=== PATIENT | male | born 1965 | race Caucasian/White ===

== ENCOUNTER 2021-03-21 01:10 | Observation (INO) | payer MEDICARE, MEDICAID, SELFPAY ==
[2021-03-21] VITALS (9 sets, daily range): BP systolic 181–200; BP diastolic 104–120; PULSE 65–104; RESP 17–20; TEMP 36.7–36.9; O2SAT 95–97; BMI 22.4
--- NOTE | 2021-03-21 01:16 | W.ED.PSYCH ---
HPI - Psych General: Chief Complaint: Psychiatric Symptoms Stated Complaint: SI Time Seen by Provider: 03/21/21 01:14 Source: patient and EMS Mode of arrival: EMS Limitations: no limitations History of Present Illness: HPI Narrative: 55-year-old male presents with EMS for suicidal ideation. Patient has extensive psychiatric history states has been under a lot of stress lately and has had problems with wall enforcement and states that he just wants to kill himself. He is a plan of a car wreck to kill himself. Patient's been admitted in the past. He denies any worsening proving factors. Associated symptoms: Reports depression and suicidal ideation Review of Systems Const: Denies: fever(s), chills, body aches or change in appetite Eyes: Denies: blurry vision or eye discomfort ENMT: Denies: throat pain or dental pain Card: Denies: chest pain Resp: Denies: dyspnea GI: Denies: abdominal pain, nausea, vomiting or diarrhea : Denies: dysuria Musc: Denies: neck pain or back pain Skin/Breast: Denies: rash Neuro: Denies: headache(s) Psych: Reports: depression and suicidal ideation Zac/Lymph: Denies: easy bruising All/Imm: Denies: urticaria Physical Exam Const: COMMON NORMALS: no acute distress, patient oriented x3 and healthy appearing HENMT: COMMON NORMALS: normocephalic and atraumatic HEAD & SCALP: normocephalic and atraumatic Eye: COMMON NORMALS: Equal, round and reactive pupils present and EOMs intact bilaterally PUPIL: Yes Equal, round and reactive pupils present Neck/C-Spine: COMMON NORMALS: full ROM and supple Chest: COMMONS NORMALS: normal inspection of the chest and normal palpation of entire chest wall Resp: COMMON NORMALS: normal respiratory effort, No retractions, No use of accessory muscles and clear to auscultation bilaterally AUSCULTATION: clear to auscultation bilaterally Cardio: COMMON NORMALS: regular rate, regular rhythm and No murmurs present (Cardio) RATE: regular rate RHYTHM: regular rhythm GI: COMMON NORMALS: Normal to inspection, nondistended, normoactive bowel sounds present, Soft to palpation, non-tender and no masses PALPATION: Yes Soft to palpation Extremity: COMMON NORMALS: normal to inspection and full ROM Neuro: COMMON NORMALS: patient oriented x3, moves all extremities and no focal motor deficits Psych: COMMON NORMALS: mental status grossly normal and cooperative THOUGHT CONTENT: Yes Suicidality present Skin: COMMON NORMALS: no rashes or lesions noted and no wounds GENERAL SKIN EXAM: no rashes or lesions noted Course Vital Signs: Vital signs: Vital Signs Temperature 98.4 F 03/21/21 01:15 Pulse Rate 104 H 03/21/21 01:15 Respiratory Rate 18 03/21/21 01:15 Blood Pressure 200/120 03/21/21 01:15 Pulse Oximetry 96 03/21/21 01:15 MDM - Psych MDM Narrative: Medical decision making narrative: Patient presents here with suicidal ideation with a plan to kill himself by MVC. Patient has been using methamphetamine as well. Patient is medically cleared here. He does have some slight hypertension likely due to his methamphetamine use. Patient's blood pressure is improved after metoprolol. Patient's other blood work here is all normal and he is stable for admission to the psych unit. Lab Data: Labs: Lab Results 03/21/21 03/21/21 03/21/21 Range/Units 00:32 01:00 01:00 WBC 8.8 (4.0-10.0) 10^3/ uL RBC 4.25 (4.1-5.3) 10^6/u L Hgb 13.5 (11.7-16.6) g/dL Hct 41.2 L (42.0-52.0) % MCV 96.9 H (80-94) fL MCH 31.8 (28.0-34.0) pg MCHC 32.8 (30.0-36.0) g/dL RDW 13.1 (12.1-15.1) % Plt Count 291 (130-400) 10^3/c mm MPV 8.7 (7.4-10.4) fL Neut % (Auto) 57.9 % Lymph % (Auto) 26.5 % [place] % (Auto) 10.8 % Eos % (Auto) 3.5 % Baso % (Auto) 0.6 % Neut # (Auto) 5.07 (1.8-7.7) 10^3/u L Lymph # (Auto) 2.3 (0.8-4.8) 10^3/u L [place] # (Auto) 1.0 H (0.2-0.9) 10^3/u L Eos # (Auto) 0.3 (0.0-0.8) 10^3/u L Baso # (Auto) 0.1 (0.0-0.1) 10^3/u L Nucleated RBC % (a uto) 0 % Nucleated RBCs # 0.0 /100WBC Sodium 138 (136-145) mmol/L Potassium 4.5 (3.5-5.1) mmol/L Chloride 101 (98-107) mmol/L Carbon Dioxide 27 (22-29) mmol/L Anion Gap 14.5 (5-19) BUN 13 (6-20) mg/dL Creatinine 0.8 (0.7-1.2) mg/dL GFR Calculation 99.6 (90-130) mL/min Glucose 101 (65-115) mg/dL Calculated Osmolal ity 286 (285-295) mOsm/k g Calcium 10.3 (8.5-10.5) mg/dL Total Bilirubin 0.2 (0.15-1.2) mg/dL AST 22 (0-40) U/L ALT 14 (0-41) U/L Alkaline Phosphata se 111 (40-130) IU/L Total Protein 7.0 (6.6-8.7) g/dL Albumin 4.4 (3.5-5.2) g/dL Globulin 2.6 (1.3-4.6) g/dL Salicylates < 0.3 L (3-10) mg/dL Urine Opiates Scre en Negative (Negative) ng/mL Acetaminophen < 5.0 L (10-30) ug/mL Ur Barbiturates Sc reen Negative (Negative) ng/mL Ur Phencyclidine S crn Negative (Negative) ng/mL Ur Amphetamines Sc reen Positive H (Negative) ng/mL U Benzodiazepines Scrn Negative (Negative) ng/mL Urine Cocaine Scre en Negative (Negative) ng/mL U Marijuana (THC) Screen Negative (Negative) ng/mL Ethyl Alcohol < 10 (0-10) mg/dL Discharge Plan Discharge Patient Disposition: Admitted As Inpatient Admit Provider: Luan Noble Clinical Impression: Suicidal ideation Condition: Stable Coding Level of Care Code ED Blower Feeder Dyed Raw Stock for Chg Fwd Exam Comprehensive
[2021-03-21 01:21] LABS: Basophils # 0.1 10^3/uL (0.0-0.1); Basophils % 0.6 %; Eosinophils # 0.3 10^3/uL (0.0-0.8); Eosinophils % 3.5 %; Hematocrit 41.2 % (42.0-52.0); Hemoglobin 13.5 g/dL (11.7-16.6); Lymphocytes # 2.3 10^3/uL (0.8-4.8); Lymphocytes % 26.5 %; Mean Corpuscular HGB Conc 32.8 g/dL (30.0-36.0); Mean Corpuscular Hemoglobin 31.8 pg (28.0-34.0); Mean Corpuscular Volume 96.9 fL (80-94); Mean Platelet Volume 8.7 fL (7.4-10.4); Monocytes % 10.8 %; Neutrophils # 5.07 10^3/uL (1.8-7.7); Neutrophils % 57.9 %; Nucleated Red Blood Cells % 0 %; Platelet Count 291 10^3/cmm (130-400); Red Blood Count 4.25 10^6/uL (4.1-5.3); Red Cell Distribution Width 13.1 % (12.1-15.1); White Blood Count 8.8 10^3/uL (4.0-10.0)
[2021-03-21] MEDS: LORazepam 1 mg Tablet PO (01:22)
[2021-03-21 01:41] LABS: Alanine Aminotransferase 14 U/L (0-41); Albumin Level 4.4 g/dL (3.5-5.2); Alkaline Phosphatase 111 IU/L (40-130); Anion Gap 14.5 (5-19); Aspartate Amino Transferase 22 U/L (0-40); Blood Urea Nitrogen 13 mg/dL (6-20); Calcium 10.3 mg/dL (8.5-10.5); Carbon Dioxide 27 mmol/L (22-29); Chloride 101 mmol/L (98-107); Globulin 2.6 g/dL (1.3-4.6); Glomerular Filtration Rate 99.6 mL/min (90-130); Glucose 101 mg/dL (65-115); Osmolality Calculated 286 mOsm/kg (285-295); Potassium 4.5 mmol/L (3.5-5.1); Sodium 138 mmol/L (136-145); Total Bilirubin 0.2 mg/dL (0.15-1.2)
[2021-03-21 01:45] LABS: Acetaminophen < 5.0 ug/mL (10-30); Alcohol Level < 10 mg/dL (0-10); Salicylate < 0.3 mg/dL (3-10)
--- NOTE | 2021-03-21 01:56 | ECG_ITS ---
[facility] Test Date: 2021-03-21 Pat Name: Abimael Chow Department: Room: Gender: Male Grader Tender: : 1965 Requested By: Cinthia Govea Order Number: [id number] Amaral MD: Trinidad Asencio M.D. Measurements Intervals [place] Rate: 97 P: 70 UT: 160 QRS: 35 QRSD: 87 T: 67 QT: 318 QTc: 405 Interpretive Statements SINUS RHYTHM POSSIBLE LEFT ATRIAL ENLARGEMENT [-0.1mV P WAVE IN V1/V2] SEPTAL MYOCARDIAL INFARCTION , OF INDETERMINATE AGE [40+ ms Q WAVE IN V1/V2] Compared to ECG 04/27/2019 03:39:55 Myocardial infarct finding now present Sinus bradycardia no longer present Electronically Signed On 03-22-2021 6:56:11 CDT by Trinidad Asencio M.D. [id number]
[2021-03-21 01:58] LABS: Amphetamines Screen Urine Positive (Negative); Barbiturates Screen Urine Negative (Negative); Benzodiazepines Screen Urine Negative (Negative); Cocaine Screen Urine Negative (Negative); Opiate Screen Urine Negative (Negative); PCP Screen Urine Negative (Negative); THC Screen Urine Negative (Negative)
[2021-03-21] MEDS: divalproex ER 500 mg Tablet (24H) PO (02:10)
[2021-03-21] MEDS: metoprolol tartrate 50 mg Tablet PO (02:23)
--- NOTE | 2021-03-21 03:48 | PC.NURSE ---
correct vital signs upon admission @238/neetua/ 03/21/2021
[2021-03-21] MEDS: nicotine 2 mg Gum BUCCAL (05:28)
[2021-03-21 07:06] LABS: Valproic Acid Level 69.4 ug/mL (50-100)
[2021-03-21] MEDS: citalopram 20 mg Tablet 40 MG PO (08:04)
[2021-03-21] MEDS: tizanidine 4 mg Tablet PO (08:05)
[2021-03-21] MEDS: timolol 0.5% Op Soln 5 mL Btl 1 DROP EYE-BOTH (08:05)
[2021-03-21] MEDS: BuSPIRONE 10 mg Tablet 15 MG PO (08:05)
[2021-03-21] MEDS: gabapentin 400 mg Capsule PO (08:05)
--- NOTE | 2021-03-21 09:09 | P.SS_ITS ---
Short Stay Summary Providers Date of Admit/Discharge: 03/21/21 Attending Provider: Luan Noble DO Chief Complaint: SI HPI History of Present Illness Abimael Chow is a 55 year old male with unclear past psychiatric history but longstanding history of substance abuse to include methamphetamine abuse presenting to the hospital after being pulled over by law enforcement and subs equently pending potential return to [place] [facility] with patient stating that he became more anxious about the idea of having to go back to [place] [facility] and was having passive suicidal thoughts with no active intent or plan. Of note, patient was positive for methamphetamine on urine drug screen at the time of his initial evaluation and was not endorsing any suicidal ideation and denying any sustained mood symptoms, no depressive symptoms. Review of Systems General: Reports: 10 or more systems reviewed and unremarkable except in HPI and below Home Meds/Allergies Home Medications and Allergies Home Medications Medication Instructions Recorded Confirmed Type albuterol sulfate 2 puff INHALATION QID 03/21/21 03/21/21 History buspirone 15 mg PO QID 03/21/21 03/21/21 History citalopram 40 mg PO DAILY 03/21/21 03/21/21 History divalproex 1,000 mg PO QPM 03/21/21 03/21/21 History divalproex 500 mg PO QAM 03/21/21 03/21/21 History fluticasone propion-salmeterol 1 inh INHALATION BID 03/21/21 03/21/21 History [Wixela Inhub] gabapentin 600 mg PO DAILY 03/21/21 03/21/21 History gabapentin 900 mg PO QAM 03/21/21 03/21/21 History lamotrigine 50 mg PO BID 03/21/21 03/21/21 History latanoprost 1 drp OPHTHALMIC (EYE) BEDTIME 03/21/21 03/21/21 History quetiapine 100 mg PO QAM 03/21/21 03/21/21 History quetiapine 150 mg PO DAILY@17 03/21/21 03/21/21 History quetiapine 300 mg PO BEDTIME 03/21/21 03/21/21 History timolol maleate 1 drp OPHTHALMIC (EYE) Q12H 03/21/21 03/21/21 History tizanidine 8 mg PO Q8H 03/21/21 03/21/21 History Allergies Allergy/AdvReac Type Severity Reaction Status Date / Time No Known Allergies Allergy Verified 03/21/21 01:12 Vitals/I&O/Wt Last Vital Signs Temp 98.5 F 03/21/21 06:00 Pulse 65 03/21/21 06:00 Resp 17 03/21/21 06:00 BP 181/104 03/21/21 06:00 Pulse Ox 96 03/21/21 06:00 Weight last 48 hrs Weight 74.843 kg Physical Exam Narrative: EXAM NARRATIVE: MSE: Appears older than stated age, appropriately groomed and dressed wearing hospital scrubs, calm, cooperative, interactive, good eye contact Psychomotor activity is neither increased nor decreased, no agitation Speech is normal rate and volume, spontaneous, fair articulation, not pressured I feel okay, full range of affect, not labile Alert and oriented to person, place, time, situation Memory and concentration appear to be intact per interview Intellectual functioning appears to be average based on vocabulary, interview Thought process, linear, no flight of ideas, no looseness of associations Thought content, no delusions, no hallucinations, no suicidal or homicidal ideation Insight and judgment appear to be fair to intact Hospital Course Hospital Course Patient states that he was never suicidal and never had any intentions of wanting to end his life reporting friends and family as a reason for not wanting to end his life. He denies any recent mood symptoms but reports having elevated anxiety secondary to the potential of having to return to [place] [facility] for violation of his parole secondary to methamphetamine possession, use. Patient was positive for methamphetamine at the time of initial evaluation in the emergency department. He currently denies any depressive symptoms, denies any suicidal ideation. He denies any perceptual disturbances, denies any auditory or visual hallucinations, denies any delusions. Patient reports being compliant with his medication that is prescribed by his primary care. Patient was found to have a Depakote level of 69 at the time of initial evaluation. Patient participated in unit milieu with no reports of any behavioral disturbances. Patient was not suicidal and denied any psychiatric symptoms at the time of discharge and did no t appear to pose an imminent threat of harm to self or others. Low to moderate risk of harm to self given no current suicidal ideation and denies having any history of suicide attempts or self-harm behavior and currently denies any psychiatric symptoms although his risk may be elevated if he continues to abuse methamphetamine leading to unexpected, impulsive behavior. Risk mitigation included psychiatric hospitalization for observation for any persisting suicidal ideation or behaviors, restarting home medications for medication stabilization, recommendation to abstain from use of substances and alcohol as well as need for compliance with his medication, medication management follow-up and substance counseling/treatment. Patient was able to communicate his understanding of the need to abstain from the use of substances and alcohol as well as the need for compliance with his medication, medication management and substance counseling/treatment in order to further mitigate his risk of harm to self and others. Diagnoses at Discharge Discharge Diagnosis (1) Suicidal ideation: Status: Acute (2) Adjustment disorder with anxiety: Status: Acute Discharge Plan Discharge Patient Disposition: Home Condition: Stable Prescriptions: Continued latanoprost 0.005 % Drops 1 drp ophthalmic (eye) BEDTIME RF: 0 citalopram 40 mg Tablet 40 mg PO DAILY RF: 0 lamotrigine 25 mg Tablet 50 mg PO BID RF: 0 divalproex 500 mg Tablet Extended Release 24 Hr 500 mg PO QAM RF: 0 divalproex 500 mg Tablet Extended Release 24 Hr 1,000 mg PO QPM RF: 0 gabapentin 300 mg Capsule 600 mg PO DAILY RF: 0 gabapentin 300 mg Capsule 900 mg PO QAM RF: 0 albuterol sulfate 90 mcg/actuation Hfa Aerosol Inhaler 2 puff INHALATION QID RF: 0 buspirone 15 mg Tablet 15 mg PO QID RF: 0 Wixela Inhub 250-50 mcg/dose Blister With Device 1 inh INHALATION BID RF: 0 quetiapine 300 mg Tablet 300 mg PO BEDTIME RF: 0 quetiapine 100 mg Tablet 100 mg PO QAM RF: 0 quetiapine 100 mg Tablet 150 mg PO DAILY@17 RF: 0 timolol maleate 0.5 % Drops 1 drp OPHTHALMIC (EYE) Q12H RF: 0 tizanidine 4 mg Capsule 8 mg PO Q8H RF: 0 Discharge Orders: Discharge Order (Routine); Ordered 03/21/21 Ordered By: Luan Noble Referrals: [facility] [Outside] [facility] [Outside] Discharge Diet: Regular Discharge Activity: Resume usual activity Patient Instructions: Opioid Safety Attestations Medical Necessity Statement*: Outpatient medication management, substance counseling/treatment is the least restrictive and appropriate level of care at this time. Time Spent in Patient Care*: greater than 30 min Status at Discharge: Cognitive status at discharge: cognitively intact , Behavioral status at discharge: cooperative , Functional status at discharge: independent ambulation Overall status at discharge: patient is back to baseline Quality Metrics Clinical Quality Measures: During this hospital stay, did patient experience: None Coding Level of Care Code Acute Agronomy Research Manager for Gailg Fwd Diagnoses Suicidal ideation R45.851 Adjustment disorder with anxiety F43.22
[2021-03-21] MEDS: albuterol 8 gm MDI 2 PUFF INHALATION (09:37)
== END 2021-03-21 11:29 | disposition home or self-care (01) ==
LOC: ER 01:50 → NP 08:55
PROVIDERS: Admitting Provider Psychiatry & Neurology Psychiatry; Emergency Provider Emergency Medicine; Visit Provider Psychiatry & Neurology Psychiatry
DX: R45.851 Suicidal ideations (principal); F43.22 Adjustment disorder with anxiety
CPT/HCPCS: 36415; 80053; 80164; 80306; 80307; 85025; 93005; 94640; 99285; G0378; J3535

== ENCOUNTER 2021-04-26 02:37 | Inpatient (IN) | payer MEDICARE, MEDICAID, SELFPAY ==
[2021-04-26] VITALS (52 sets, daily range): BP systolic 98–148; BP diastolic 60–91; PULSE 62–110; RESP 12–24; TEMP 36.1–37.1; O2SAT 94–100; BMI 25.7
--- NOTE | 2021-04-26 02:39 | XRR_ITS ---
PROCEDURE INFORMATION: Exam: XR Chest Exam date and time: 04/26/2021 2:39 AM Age: 55 years old Clinical indication: Device placement; Ett placement (vent status); Patient HX: Drug overdose. Check S/P intubation. Unable to obtain history. ; Additional info: Od TECHNIQUE: Imaging protocol: XR of the chest. Views: 1 view. COMPARISON: TN Chest 1 view [id number] 04/29/2019 10:37 AM FINDINGS: Tip of ET tube projects in appropriate position above the calista. Lung volumes are mildly low. Otherwise no focal pulmonary consolidation is demonstrated on this single frontal image. No significant obscuration of the lateral costophrenic angles is demonstrated. No significant vascular congestion is demonstrated. Visualized cardiac silhouette size appears enlarged, accentuated by low lung volumes. Thoracic aorta is unfolded. Metallic hardware projects over visualized cervical spine. XR/XR chest 1V portable [id number] IMPRESSION: Tip of ET tube projects in appropriate position above the calista. Other findings as discussed above.
--- NOTE | 2021-04-26 02:41 | ECG_ITS ---
[facility] Test Date: 2021-04-26 Pat Name: Abimael Chow Department: Room: Gender: Male Tabulating Clerk: : 1965 Requested By: Cinthia Govea Order Number: [id number] Cristin MD: Norris Bazan M.D. Measurements Intervals [place] Rate: 110 P: 51 MA: 155 QRS: 22 QRSD: 91 T: 77 QT: 251 QTc: 340 Interpretive Statements SINUS TACHYCARDIA POSSIBLE LEFT ATRIAL ENLARGEMENT [-0.1mV P WAVE IN V1/V2] SEPTAL MYOCARDIAL INFARCTION [40+ ms Q WAVE IN V1/V2], OF INDETERMINATE AGE Compared to ECG 03/21/2021 02:00:44 Sinus rhythm no longer present Myocardial infarct finding still present Electronically Signed On 04-26-2021 20:04:27 CDT by Norris Bazan M.D. [id number]
--- NOTE | 2021-04-26 02:42 | ED_ITS ---
HPI - Overdose General: Chief Complaint: Overdose Stated Complaint: overdose Time Seen by Provider: 04/26/21 02:39 Source: EMS Mode of arrival: EMS Limitations: altered mental status History of Present Illness: HPI Narrative: [id number] male per EMS and scheduled to go to [facility] and was having suicidal thoughts did not want to go to [place] [facility]. He had called the suicide hotline stating he was going to overdose and they called EMS. When EMS arrived he had taken roughly 3100 mg Seroquel's roughly 1 to 2 hours ago. 1 they arrived he stated that he was doing this to kill himself. He was originally with EMS awake alert able answer all questions. He states that over the last 4 to 5 minutes he has became increasingly lethargic. Here he only respond to painful stimuli but is not able to answer any questions or form any sentences. He is very somnolent. Review of Systems General: Reports: ROS unobtainable due to mental status Physical Exam Const: COMMON NORMALS: negative for patient oriented x3 GENERAL APPEARANCE: lethargic and ill appearing ORIENTATION/CONSCIOUSNESS: Yes lethargic HENMT: COMMON NORMALS: normocephalic and atraumatic HEAD & SCALP: normocephalic and atraumatic Eye: COMMON NORMALS: Equal, round and reactive pupils present and EOMs intact bilaterally PUPIL: Yes Equal, round and reactive pupils present Neck/C-Spine: COMMON NORMALS: full ROM and supple Chest: COMMONS NORMALS: normal inspection of the chest and normal palpation of entire chest wall Resp: COMMON NORMALS: normal respiratory effort, No retractions, No use of accessory muscles and clear to auscultation bilaterally AUSCULTATION: clear to auscultation bilaterally Cardio: COMMON NORMALS: regular rhythm and No murmurs present (Cardio) RATE: tachycardic RHYTHM: regular rhythm GI: COMMON NORMALS: Normal to inspection, nondistended, normoactive bowel sounds present, Soft to palpation, non-tender and no masses PALPATION: Yes Soft to palpation Extremity: COMMON NORMALS: normal to inspection and full ROM Neuro: COMMON NORMALS: moves all extremities and no focal motor deficits; negative for patient oriented x3 SENSORIUM/ORIENTATION: Yes lethargic and Yes somnolent Psych: COMMON NORMALS: negative for mental status grossly normal Skin: COMMON NORMALS: no rashes or lesions noted and no wounds GENERAL SKIN EXAM: no rashes or lesions noted Procedures Intubation Time out performed: Yes sedative: Etomidate Mg Given: 20 paralytic: Vecuronium Mg Given: 10 Laryngoscope: Blanca Assist Device Used: fiber optic device ET Tube Size: 8 ET Tube Uncuffed: No Tube Secured Depth (cm): 24 Tube Secured Location: teeth Tube Placement Confirmation: visualized tube passing through cords, equal breath sounds bilaterally, no breath sounds over epigastrium and confirmation by capnometry Patient Tolerated Procedure: well Intubation Complications: none Course Vital Signs: Vital signs: Vital Signs Temperature 97.0 F L 04/26/21 02:47 Pulse Rate 91 04/26/21 03:22 Respiratory Rate 12 04/26/21 03:22 Blood Pressure 125/77 04/26/21 03:22 Pulse Oximetry 97 04/26/21 03:22 MDM - Overdose MDM Narrative: Medical decision making narrative: Patient presents here after an intentional overdose on Seroquel. Patient was somnolent when he arrived and was requiring oxygen and not protecting his own airway. He was intubated due to this. He has been stable here EKG shows no QT prolongation. Lab work is normal. I spoke to hospitalist will admit to the ICU. Lab Data: Labs: Lab Results 04/26/21 04/26/21 04/26/21 Range/Units 02:40 02:40 02:40 WBC 8.2 (4.0-10.0) 10^3/ uL RBC 4.06 L (4.1-5.3) 10^6/u L Hgb 13.0 (11.7-16.6) g/dL Hct 38.6 L (42.0-52.0) % MCV 95.1 H (80-94) fL MCH 32.0 (28.0-34.0) pg MCHC 33.7 (30.0-36.0) g/dL RDW 12.9 (12.1-15.1) % Plt Count 251 (130-400) 10^3/c mm MPV 9.3 (7.4-10.4) fL Neut % (Auto) 53.8 % Lymph % (Auto) 33.7 % [place] % (Auto) 8.8 % Eos % (Auto) 2.6 % Baso % (Auto) 0.6 % Neut # (Auto) 4.42 (1.8-7.7) 10^3/u L Lymph # (Auto) 2.8 (0.8-4.8) 10^3/u L [place] # (Auto) 0.7 (0.2-0.9) 10^3/u L Eos # (Auto) 0.2 (0.0-0.8) 10^3/u L Baso # (Auto) 0.1 (0.0-0.1) 10^3/u L Nucleated RBC % (a uto) 0 % Nucleated RBCs # 0.0 /100WBC PT 12.90 (12.1-14.9) SECO NDS INR 0.94 (0.8-1.2) Specimen Type Sample Site ABG pH (7.35-7.45) ABG pCO2 (35-45) mmHg ABG pO2 (80.0-100.0) mmH g ABG HCO3 (22-26) mmol/L ABG Base Excess (-2.0-2.0) mmol/ L Wilman Test Hematocrit (42-52) % O2 Delivery Device O2 Liters/Min % FiO2 % Bilingual Sales Assistant ID Sodium 137 (136-145) mmol/L Potassium 4.2 (3.5-5.1) mmol/L Chloride 104 (98-107) mmol/L Carbon Dioxide 24 (22-29) mmol/L Anion Gap 13.2 (5-19) BUN 16 (6-20) mg/dL Creatinine 0.9 (0.7-1.2) mg/dL GFR Calculation 87.0 L (90-130) mL/min Glucose 159 H (65-115) mg/dL Calculated Osmolal ity 289 (285-295) mOsm/k g Lactate (0.5-2.2) mmol/L Calcium 9.3 (8.5-10.5) mg/dL Magnesium 1.8 (1.7-2.3) mg/dL Total Bilirubin 0.2 (0.15-1.2) mg/dL AST 13 (0-40) U/L ALT 12 (0-41) U/L Alkaline Phosphata se 90 (40-130) IU/L Total Protein 6.1 L (6.6-8.7) g/dL Albumin 4.0 (3.5-5.2) g/dL Globulin 2.1 (1.3-4.6) g/dL Salicylates < 0.3 L (3-10) mg/dL Urine Opiates Scre en (Negative) ng/mL Acetaminophen < 5.0 L (10-30) ug/mL Ur Barbiturates Sc reen (Negative) ng/mL Ur Phencyclidine S crn (Negative) ng/mL Ur Amphetamines Sc reen (Negative) ng/mL U Benzodiazepines Scrn (Negative) ng/mL Urine Cocaine Scre en (Negative) ng/mL U Marijuana (THC) Screen (Negative) ng/mL Ethyl Alcohol < 10 (0-10) mg/dL 04/26/21 04/26/21 04/26/21 Range/Units 02:50 02:50 03:01 WBC (4.0-10.0) 10^3/ uL RBC (4.1-5.3) 10^6/u L Hgb (11.7-16.6) g/dL Hct (42.0-52.0) % MCV (80-94) fL MCH (28.0-34.0) pg MCHC (30.0-36.0) g/dL RDW (12.1-15.1) % Plt Count (130-400) 10^3/c mm MPV (7.4-10.4) fL Neut % (Auto) % Lymph % (Auto) % [place] % (Auto) % Eos % (Auto) % Baso % (Auto) % Neut # (Auto) (1.8-7.7) 10^3/u L Lymph # (Auto) (0.8-4.8) 10^3/u L [place] # (Auto) (0.2-0.9) 10^3/u L Eos # (Auto) (0.0-0.8) 10^3/u L Baso # (Auto) (0.0-0.1) 10^3/u L Nucleated RBC % (a uto) % Nucleated RBCs # /100WBC PT (12.1-14.9) SECO NDS INR (0.8-1.2) Specimen Type Arterial Sample Site Radial, right ABG pH 7.35 (7.35-7.45) ABG pCO2 46.6 H (35-45) mmHg ABG pO2 68.6 L (80.0-100.0) mmH g ABG HCO3 25.5 (22-26) mmol/L ABG Base Excess -0.5 (-2.0-2.0) mmol/ L Wilman Test N/a Hematocrit 37.7 L (42-52) % O2 Delivery Device Nc O2 Liters/Min 2.0 % FiO2 28.0 % Bilingual Sales Assistant ID [email or web address] Sodium (136-145) mmol/L Potassium (3.5-5.1) mmol/L Chloride (98-107) mmol/L Carbon Dioxide (22-29) mmol/L Anion Gap (5-19) BUN (6-20) mg/dL Creatinine (0.7-1.2) mg/dL GFR Calculation (90-130) mL/min Glucose (65-115) mg/dL Calculated Osmolal ity (285-295) mOsm/k g Lactate 2.3 H (0.5-2.2) mmol/L Calcium (8.5-10.5) mg/dL Magnesium (1.7-2.3) mg/dL Total Bilirubin (0.15-1.2) mg/dL AST (0-40) U/L ALT (0-41) U/L Alkaline Phosphata se (40-130) IU/L Total Protein (6.6-8.7) g/dL Albumin (3.5-5.2) g/dL Globulin (1.3-4.6) g/dL Salicylates (3-10) mg/dL Urine Opiates Scre en Negative (Negative) ng/mL Acetaminophen (10-30) ug/mL Ur Barbiturates Sc reen Negative (Negative) ng/mL Ur Phencyclidine S crn Negative (Negative) ng/mL Ur Amphetamines Sc reen Positive H (Negative) ng/mL U Benzodiazepines Scrn Negative (Negative) ng/mL Urine Cocaine Scre en Negative (Negative) ng/mL U Marijuana (THC) Screen Positive H (Negative) ng/mL Ethyl Alcohol (0-10) mg/dL Imaging Data^: CXR: Attestation: I personally reviewed and interpreted this imaging study as follows: My impression: no acute abnormality EKG Data^: EKG 1: Attestation: I personally reviewed and interpreted this EKG as follows: EKG interpretation date: 04/26/21 EKG interpretation time: 02:41 Interpretation: sinus tach hr [address] or t wave abnormalities qrs 91 qtc 316 Critical Care Time Critical Care Time: Critical Care Time: Yes Total Critical Care Time: 36 Attestation: This case had a high probability of a clinically significant, sudden, or life threatening deterioration of this patient's condition which required my full and direct attention, intervention and personal management. Discharge Plan Discharge Patient Disposition: Admitted As Inpatient Clinical Impression: Drug overdose Qualifiers: Encounter type: initial encounter Injury intent: intentional self-harm Qualified Code(s): T50.902A - Poisoning by unspecified drugs, medicaments and biological substances, intentional self-harm, initial encounter Condition: Stable Coding Level of Care Code ED Chief Deputy Clerk/Bailiff for Marcio Fwd Exam Comprehensive
[2021-04-26 02:48] LABS: Basophils # 0.1 10^3/uL (0.0-0.1); Basophils % 0.6 %; Eosinophils # 0.2 10^3/uL (0.0-0.8); Eosinophils % 2.6 %; Hematocrit 38.6 % (42.0-52.0); Lymphocytes # 2.8 10^3/uL (0.8-4.8); Lymphocytes % 33.7 %; Mean Corpuscular HGB Conc 33.7 g/dL (30.0-36.0); Mean Corpuscular Volume 95.1 fL (80-94); Mean Platelet Volume 9.3 fL (7.4-10.4); Monocytes # 0.7 10^3/uL (0.2-0.9); Monocytes % 8.8 %; Neutrophils # 4.42 10^3/uL (1.8-7.7); Neutrophils % 53.8 %; Nucleated Red Blood Cells % 0 %; Platelet Count 251 10^3/cmm (130-400); Red Blood Count 4.06 10^6/uL (4.1-5.3); Red Cell Distribution Width 12.9 % (12.1-15.1); White Blood Count 8.2 10^3/uL (4.0-10.0)
[2021-04-26 02:51] LABS: ABG PCO2 46.6 mmHg (35-45); ABG PH Result 7.35 (7.35-7.45); Arterial Blood Gas Hematocrit 37.7 % (42-52); Base Excess ABG -0.5 mmol/L (-2.0-2.0); Blood Gas Sample Site Radial, right; Blood Gas Sample Type Arterial; HCO3 ABG 25.5 mmol/L (22-26); Oxygen Device NC; PO2 ABG 68.6 mmHg (80.0-100.0)
[2021-04-26] MEDS: vecuronium 10 mg SDV IVP (02:56)
[2021-04-26 02:59] LABS: INR 0.94 (0.8-1.2)
[2021-04-26] MEDS: sodium chloride 0.9% 1,000 ML 999 ML IV ×2 (03:01→03:19)
[2021-04-26 03:04] LABS: Alanine Aminotransferase 12 U/L (0-41); Alkaline Phosphatase 90 IU/L (40-130); Anion Gap 13.2 (5-19); Aspartate Amino Transferase 13 U/L (0-40); Blood Urea Nitrogen 16 mg/dL (6-20); Calcium 9.3 mg/dL (8.5-10.5); Carbon Dioxide 24 mmol/L (22-29); Chloride 104 mmol/L (98-107); Globulin 2.1 g/dL (1.3-4.6); Glucose 159 mg/dL (65-115); Magnesium 1.8 mg/dL (1.7-2.3); Osmolality Calculated 289 mOsm/kg (285-295); Potassium 4.2 mmol/L (3.5-5.1); Sodium 137 mmol/L (136-145); Total Bilirubin 0.2 mg/dL (0.15-1.2); Total Protein 6.1 g/dL (6.6-8.7)
[2021-04-26 03:19] LABS: Acetaminophen < 5.0 ug/mL (10-30); Alcohol Level < 10 mg/dL (0-10); Salicylate < 0.3 mg/dL (3-10)
[2021-04-26 03:28] LABS: Amphetamines Screen Urine Positive (Negative); Barbiturates Screen Urine Negative (Negative); Benzodiazepines Screen Urine Negative (Negative); Cocaine Screen Urine Negative (Negative); Opiate Screen Urine Negative (Negative); PCP Screen Urine Negative (Negative); THC Screen Urine Positive (Negative)
[2021-04-26 03:30] LABS: Lactate (Lactic Acid level) 2.3 mmol/L (0.5-2.2)
--- NOTE | 2021-04-26 03:44 | P.HP_ITS ---
Providers/Chief Complaint Chief Complaint: overdose History of Present Illness Abimael Chow is a 55 year old male who has history of substance abuse, psychiatric history was admitted in March when he was pulled over by law enforcement, he was endorsing passive suicidal thoughts at that time which were triggered by thoughts having to go back to penitentiary presented today for drug overdose. Most of the information has been given by EMS and the ER physician. Patient took 30 tablets of 100 mg of Seroquel. He took these tablets to prevent going to penitentiary today, he called suicidal hotline before taking these tablets. Hotline called 911 who brought him to the ER. He was obtunded with GCS less than 8 hence was intubated. Endotracheal tube size 8 secured at teeth 24 cm, hypercapnia noted on ABG his minute ventilation increased after adjustment of vent settings, current vent settings FiO2 35% PEEP 5 tidal volume 550 respiratory rate 14. No QTC prolongation, normal CBC and BMP, mildly high lactic acid. U tox positive for methamphetamine, marijuana. Review of Systems General: Reports: ROS unobtainable due to endotracheal tube Medications/Allergies Home Medications Medication Instructions Recorded Confirmed Last Taken Type Wixela Inhub 1 inh INHALATION BID 03/21/21 03/21/21 Unknown History albuterol sulfate 2 puff INHALATION QID 03/21/21 03/21/21 Unknown History buspirone 15 mg PO QID 03/21/21 03/21/21 Unknown History citalopram 40 mg PO DAILY 03/21/21 03/21/21 Unknown History divalproex 1,000 mg PO QPM 03/21/21 03/21/21 Unknown History divalproex 500 mg PO QAM 03/21/21 03/21/21 Unknown History gabapentin 600 mg PO DAILY 03/21/21 03/21/21 Unknown History gabapentin 900 mg PO QAM 03/21/21 03/21/21 Unknown History lamotrigine 50 mg PO BID 03/21/21 03/21/21 Unknown History latanoprost 1 drp OPHTHALMIC (EYE) BEDTIME 03/21/21 03/21/21 Unknown History quetiapine 100 mg PO QAM 03/21/21 03/21/21 Unknown History quetiapine 150 mg PO DAILY@17 03/21/21 03/21/21 Unknown History quetiapine 300 mg PO BEDTIME 03/21/21 03/21/21 Unknown History timolol maleate 1 drp OPHTHALMIC (EYE) Q12H 03/21/21 03/21/21 Unknown History tizanidine 8 mg PO Q8H 03/21/21 03/21/21 Unknown History Allergies Allergy/AdvReac Type Severity Reaction Status Date / Time No Known Allergies Allergy Verified 03/21/21 01:12 PFSH Acute 2 PFSH: Medical History (Updated 04/26/21 @ 04:51 by Ze Garibay MD) Back pain COPD (chronic obstructive pulmonary disease) Dyslipidemia Hypertension Major depressive disorder Surgical History (Updated 04/26/21 @ 04:51 by Ze Garibay MD) H/O neck surgery Family History (Updated 04/26/21 @ 04:51 by Ze Garibay MD) Other CAD (coronary artery disease) Stroke Social History (Updated 04/26/21 @ 04:52 by Ze Garibay MD) Smoking and tobacco status: current every day smoker Alcohol intake: unknown Substance/Drug Use: current Substance/Drug use type: Marijuana and Methamphetamine Vitals/I&O/Wt Last Vital Signs Temp 97.0 F L 04/26/21 02:47 Pulse 91 04/26/21 03:22 Resp 12 04/26/21 03:22 BP 125/77 04/26/21 03:22 Pulse Ox 97 04/26/21 03:22 04/25/21 04/25/21 04/26/21 14:59 22:59 06:59 Intake Total 1000 / 1000 Balance 1000 / 1000 Weight last 48 hrs Weight 86.183 kg Physical Exam Narrative: EXAM NARRATIVE: Middle-age male intubated and sedated endotracheal tube size 8 secured at 24 cm teeth bite PRVC tidal volume 550 FiO2 35% PEEP 5 respiratory 14 Pupils equal and reactive to light Sedated with fentanyl running at 50 S1, S2 sinus rhythm no signs of heart failure however has bilateral lower extremity mild edema Skin tattoos noticed Social breath sounds Abdomen soft, nondistended Neuro exam limited Swelling of left foot noted Urinary Catheter Management^: Nuno: Cath Placed During This Visit: yes Urinary Catheter Date of Insertion: 04/26/21 Urinary Catheter Time of Insertion: 02:53 Data : 04/26/21 02:40 04/26/21 02:40 A&P Assessment and plan (1) Drug overdose: Status: Acute Qualifiers: Encounter type: initial encounter Injury intent: intentional self-harm Qualified Code(s): T50.902A - Poisoning by unspecified drugs, medicaments and biological substances, intentional self-harm, initial encounter (2) Respiratory failure: Status: Acute Additional A&P Information Respiratory failure requiring intubation GCS less than 8 after drug overdose U tox positive for methamphetamine and marijuana Took Seroquel 30 tablets of 20 mg No QTC prolongation no hemodynamic instability He was intubated for airway protection Admit to ICU Sedation with fentanyl which is running at 50 mics Patient does have history of breakthrough seizures, check Depakote level, would use IV for now N.p.o. Weaning trial in the morning Full code DVT prophylaxis Lovenox 96-hour hold for suicide attempt, will need psych evaluation after extubation Attestations Medical Necessity Statement*: Anticipating stay in the hospital cross more than 2 midnights for drug overdose Time Spent in Patient Care: 40mins Coding Level of Care Code Acute Pattern Developer for Marcio Carrasco Diagnoses Drug overdose T50.902A Encounter type: initial encounter Injury intent: intentional self-harm Respiratory failure J96.90
[2021-04-26 04:12] LABS: ABG PCO2 55.9 mmHg (35-45); ABG PH Result 7.25 (7.35-7.45); Arterial Blood Gas Hematocrit 34.5 % (42-52); Base Excess ABG -3.3 mmol/L (-2.0-2.0); Blood Gas Sample Site Radial, left; Blood Gas Sample Type Arterial; Carboxyhemoglobin 2.6 %THgb (0.4-20.1); HCO3 ABG 24.5 mmol/L (22-26); HGB O2 Sat 88.7 % (95-100); Ionized Calcium Level - ABG 1.3 mmol/L (1.1-1.4); Methemoglobin 1.2 % (0.4-1.5); Oxygen Device VENT; Oxygen Saturation ABG 92.1; Potassium Level - ABG 3.8 mmol/L (3.5-5.0); Total Hemoglobin 11.3 g/dL (14-18)
[2021-04-26 04:32] LABS: ABG PCO2 49.5 mmHg (35-45); Arterial Blood Gas Hematocrit 34.6 % (42-52); Base Excess ABG -2.6 mmol/L (-2.0-2.0); Blood Gas Allen Test Pos; Blood Gas Sample Site Radial, right; Blood Gas Sample Type Arterial; Blood Gas Tidal Volume 0.55; HCO3 ABG 24.2 mmol/L (22-26); Oxygen Device VENT
[2021-04-26] MEDS: propofol 1,000 MG/100 ML INJ 5.17 MG IV (05:02)
--- NOTE | 2021-04-26 05:03 | PC.NURSE ---
patient becoming restless, verbal order from Dr. Govea to start propofol infusion titratable dosing for additional sedation
[2021-04-26 05:16] LABS: Magnesium 1.8 mg/dL (1.7-2.3); Valproic Acid Level 16.9 ug/mL (50-100)
--- NOTE | 2021-04-26 07:55 | PC.NURSE ---
Addendum entered by Megan Lucas RN 04/26/21 12:41: Second IV site located in right hand not forearm. Original Note: Pt arrives from ED to ICU , intubated and sedated. Propofol infusing in left forearm at 10mcg/kg/min and Fentanyl infusing 100mcg/hr. Second IV site noted in right Forearm. No NG noted. No response noted during bed transfer. Nuno patent and draining. No seizure activity nor spastic movements noted. Sinus rhythm noted on monitor.
--- NOTE | 2021-04-26 09:00 | ECG_ITS ---
[facility] Test Date: 2021-04-26 Pat Name: Abimael Chow Department: Room: [facility]04 Gender: Male Supervisor Kennel: : 1965 Requested By: Ze Garibay Order Number: [id number] Cristin MD: Norris Bazan M.D. Measurements Intervals [place] Rate: 65 P: 57 WA: 182 QRS: 23 QRSD: 90 T: 54 QT: 433 QTc: 452 Interpretive Statements SINUS RHYTHM Compared to ECG 04/26/2021 02:41:54 Sinus tachycardia no longer present Myocardial infarct finding no longer present Electronically Signed On 04-26-2021 20:11:31 CDT by Norris Bazan M.D. [id number]
--- NOTE | 2021-04-26 09:15 | PC.NURSE ---
Ursula Paul, friend on contact list, called to check on pt.. Update provided.
--- NOTE | 2021-04-26 10:05 | PC.CHAP ---
Pastoral Care Encounter/Spiritual Assessment Type of Contact [] Declined radiation therapy technician visit [] Patient/Family/Request visit [] Outpatient visit [] Follow-up visit [] Physician referral [] Code/Alert [x] Routine visit [] Staff referral [] Actively dying [] Patient sleeping [] Family support [] [] Out of room [] Palliative care [] [] Receiving care in room [] Pre-surgical visit [] Trauma [] Long length of stay [x] ICU visit [x] Other: ventilator Relational/Emotional Strength [] Patient feels connected with others/family/visitors/staff [] Distress [] Loneliness/isolation [] Abandonment Spirituality of Patient [] Person of [place]ore[place] [] Attends Advent of their [place] [] Believes in Prayer [] Reads Bible or Pentecostal materials [] There are Spiritual issues to be addressed Team Cdl Driver Interventions [x] Prayer [] Active listening [] Non-anxious presence [] Spiritual/emotional support [] Crisis/trauma care [] Spiritual counseling [] Bereavement support [] Provided bereavement packet [] Provided Bible/devotional materials [] Provided toy/stuffed animal, coloring book to patient or family member [] Provided Communion [] Anointing/[place] [] Salvation [x] Completed spiritual assessment [] Other: Impact on Illness or Injury [] Angry [] Fearful [] Anxious [] Often cries [] Exhaustion [] Unable to work [] Unable to attend lutheran [] Unable to walk/stand [] Unable to read [] Unable to drive [] Unable to eat/drink [] Unable to sleep [] Unable to be with family [] Patient intubated [] Other: Summary Time spent with patient
--- NOTE | 2021-04-26 10:40 | PC.NURSE ---
MAR other delay related to care of 2 other ICU patients
[2021-04-26] MEDS: enoxaparin 40 mg/0.4 mL Syringe SUBCUT (10:59)
[2021-04-26] MEDS: dextrose 5%-sod chloride 0.45% 1,000 ML 75 ML IV (11:00)
--- NOTE | 2021-04-26 11:17 | PC.NURSE ---
Nurse witnessed wallet contents. Included license, debit card. No wallace.
--- NOTE | 2021-04-26 11:30 | PC.NURSE ---
Poison Control called for follow-up No new recommendations at this ti me, just keep monitoring.
--- NOTE | 2021-04-26 14:19 | P.PN_ITS ---
Subjective Subjective: Interval history: Patient remained stable on mechanical ventilation with fentanyl/propofol for sedation. Medications: Reviewed: Yes Vitals/I&O/Wt Last Vital Signs Temp 97.5 F L 04/26/21 08:00 Pulse 65 04/26/21 11:15 Resp 16 04/26/21 13:23 BP 105/70 04/26/21 11:15 Pulse Ox 100 04/26/21 13:23 04/25/21 04/26/21 04/26/21 22:59 06:59 14:59 Intake Total Balance Weight last 48 hrs Weight 86.183 kg Physical Exam Narrative: EXAM NARRATIVE: General- on mechanical vent HEENT- ET tube in place Chest- bilateral vented signs Abdomen -soft nontender nondistended Extremities-no edema Urinary Catheter Management^: Nuno: Cath Placed During This Visit: yes Reason for Continuing Indwelling Catheter: Required Immobilization for Trauma or Surgery or Anesthesia Urinary Catheter Date of Insertion: 04/26/21 Urinary Catheter Time of Insertion: 02:53 Data : 04/26/21 02:40 04/26/21 02:40 A&P Assessment and plan (1) Drug overdose: Seroquel 30 tablets of 20 mg No QTC prolongation no hemodynamic instability Poison control contact in ER. Cardiac tele Status: Acute Qualifiers: Encounter type: initial encounter Injury intent: intentional self-harm Qualified Code(s): T50.902A - Poisoning by unspecified drugs, medicaments and biological substances, intentional self-harm, initial encounter (2) Respiratory failure: Continue vent support Continue sedation Will wean in a.m. Breathing trials in a.m. Status: Acute Additional A&P Information Full code DVT prophylaxis Lovenox 96-hour hold for suicide attempt, will need psych evaluation after extubation Attestations Medical Necessity Statement*: Will require further hospitalization for management of overdose and respiratory failure on vent Time Spent in Patient Care: Greater than 35 minutes (>than 50% of time spent in counselling and/or direct pt care on unit) . Critical Care Time: Critical Care Time (min): 45 Coding Level of Care Code Acute Chicken Dresser for Marcio Carrasco Diagnoses Drug overdose T50.902A Encounter type: initial encounter Injury intent: intentional self-harm Respiratory failure J96.90
--- NOTE | 2021-04-26 17:45 | PC.NURSE ---
Ursula Paul, called for update. No changes reported.
--- NOTE | 2021-04-26 19:43 | PC.NURSE ---
Report given to JOSE Klein. Shift summary: Pt has remains intubated and sedated. No responses to pain thus far. Pupils are equally reactive and brisk. FIO2 at 35% Sinus rhythm noted on monitor. Poison control called for follow up, no further recommendations at this time. No change in Propofol or Fentanyl infusing rates. Urine output of 400ml of clear, dark yellow urine noted this shift. Friend Ursula Paul has called twice o check on pt.
[2021-04-26] MEDS: propofol 1,000 MG/100 ML INJ 2.59 MG IV (22:01)
[2021-04-27] VITALS (37 sets, daily range): BP systolic 107–170; BP diastolic 69–102; PULSE 62–100; RESP 14–25; TEMP 36.9–37.6; O2SAT 90–100
[2021-04-27] MEDS: dextrose 5%-sod chloride 0.45% 1,000 ML 75 ML IV ×2 (00:12→14:03)
--- NOTE | 2021-04-27 00:27 | PC.NURSE ---
[facility] [address] Report received from JOSE Guzman. Patient on mechanical ventilation, VC-AC, FiO2 30%, TV 550, PEEP 5, Rate 16. 28 cm at lip, 8.0 tube. Patient is arousable to stimuli and follows commands, startles easily and appears anxious while awake coughing and trying to pull at ETT. Fentanyl is at 100 mcg/hour of fentanyl, 10 mcg/kg/min of propofol, and D51/2NS running at 75 mL/hour. Nuno catheter in place and draining.
[2021-04-27] MEDS: propofol 1,000 MG/100 ML INJ 10.34 MG IV (04:36)
--- NOTE | 2021-04-27 04:50 | PC.NURSE ---
URINE OUTPUT Dr. Garibay notified of urine output of 325 mL light ren urine this shift. Physician placed order for LR bolus.
[2021-04-27] MEDS: lactated ringers 1,000 ML 999 ML IV (04:52)
--- NOTE | 2021-04-27 05:20 | PC.NURSE ---
WEANING TRIAL Per Dr. Garibay's order for ventilator weaning trial, sedation titrated down. See MAR for titrations.
[2021-04-27 05:24] LABS: Blood Urea Nitrogen 13 mg/dL (6-20); Calcium 8.4 mg/dL (8.5-10.5); Carbon Dioxide 23 mmol/L (22-29); Chloride 105 mmol/L (98-107); Glomerular Filtration Rate 99.6 mL/min (90-130); Glucose 97 mg/dL (65-115); Osmolality Calculated 282 mOsm/kg (285-295); Sodium 136 mmol/L (136-145)
[2021-04-27 05:26] LABS: Anion Gap 12.1 (5-19); Potassium 4.1 mmol/L (3.5-5.1)
[2021-04-27 05:42] LABS: ABG PH Result 7.39 (7.35-7.45); Arterial Blood Gas Hematocrit 36.5 % (42-52); Blood Gas Allen Test Pos; Blood Gas Sample Type Arterial; PO2 ABG 84.5 mmHg (80.0-100.0)
[2021-04-27 05:43] LABS: Blood Gas Operator Identificat HARKR; Blood Gas Sample Site Radial, left; Blood Gas Tidal Volume 0.55; Oxygen Device VENT
--- NOTE | 2021-04-27 08:21 | PC.CHAP ---
Pastoral Care Encounter/Spiritual Assessment Type of Contact [] Declined supervisor broadloom visit [] Patient/Family/Request visit [] Outpatient visit [] Follow-up visit [] Physician referral [] Code/Alert [x] Routine visit [] Staff referral [] Actively dying [] Patient sleeping [] Family support [] [] Out of room [] Palliative care [] [x] Receiving care in room [] Pre-surgical visit [] Trauma [] Long length of stay [x] ICU visit [x] Other: ventilator sitter Relational/Emotional Strength [] Patient feels connected with others/family/visitors/staff [] Distress [] Loneliness/isolation [] Abandonment Spirituality of Patient [] Person of [place]orene [] Attends Sikhism of their [place] [] Believes in Prayer [] Reads Bible or Mandaen materials [] There are Spiritual issues to be addressed Quality Assurance Associate Interventions [x] Prayer [] Active listening [] Non-anxious presence [] Spiritual/emotional support [] Crisis/trauma care [] Spiritual counseling [] Bereavement support [] Provided bereavement packet [] Provided Bible/devotional materials [] Provided toy/stuffed animal, coloring book to patient or family member [] Provided Communion [] Anointing/[place] [] Salvation [x] Completed spiritual assessment [] Other: Impact on Illness or Injury [] Angry [] Fearful [] Anxious [] Often cries [] Exhaustion [] Unable to work [] Unable to attend sabianism [] Unable to walk/stand [] Unable to read [] Unable to drive [] Unable to eat/drink [] Unable to sleep [] Unable to be with family [] Patient intubated [] Other: Summary Time spent with patient
[2021-04-27] MEDS: enoxaparin 40 mg/0.4 mL Syringe SUBCUT (09:22)
--- NOTE | 2021-04-27 09:47 | PC.NURSE ---
Fentanyl gtt: Full 100ml bag , unopened, returned to pharmacy, [facility], on unit,received.
--- NOTE | 2021-04-27 11:03 | PC.NURSE ---
Pt extubated to 2 lpm/NC. O2 sats 99%. Pt tolerating well.
--- NOTE | 2021-04-27 11:05 | PC.NURSE ---
Fentanyl gtt wasted. 6.7 mls. Witnessed by Shireen Stanley RN.
--- NOTE | 2021-04-27 11:29 | PC.NURSE ---
Returned Ursula Paul phone call. Updated her on pts condition, no breathing tube now. Visiting hours 3-4 pm.
--- NOTE | 2021-04-27 12:11 | PC.RESP ---
PULMONARY REHAB INFORMATION SENT TO PATIENT.
--- NOTE | 2021-04-27 12:24 | PC.NURSE ---
Poison Control called for follow up on pt. VSS, extubated, bernardo consulted. Going to close case.
--- NOTE | 2021-04-27 12:36 | PC.NURSE ---
[address] waste by Megan Lucas.
--- NOTE | 2021-04-27 14:38 | P.PN_ITS ---
Subjective Subjective: Interval history: Patient was seen early in a.m. during which time he was stable on mechanical ventilation. Sedation was being weaned. Patient was starting to respond. low-grade temp overnight. Medications: Reviewed: Yes Vitals/I&O/Wt Last Vital Signs Temp 99.7 F H 04/27/21 08:30 Pulse 95 04/27/21 14:00 Resp 19 H 04/27/21 14:00 BP 152/80 04/27/21 14:00 Pulse Ox 96 04/27/21 14:00 04/26/21 04/27/21 04/27/21 22:59 06:59 14:59 Intake Total 3.665 / 94.582 2300.653 / 2395.235 1272.720 / 1272.720 Output Total 400 / 400 325 / 725 1275 / 1275 Balance -396.335 / -480.780 4118.653 / 1670.235 -2.280 / -2.280 Weight last 48 hrs Weight 81.964 kg Weight 86.183 kg Physical Exam Narrative: EXAM NARRATIVE: General- on mechanical vent HEENT- ET tube in place Chest- bilateral vented signs Abdomen -soft nontender nondistended Extremities-no edema Urinary Catheter Management^: Nuno: Cath Placed During This Visit: yes, but has since been removed by the nurse Reason for Continuing Indwelling Catheter: Accurate Measurement of Urinary Output in Critically Ill Patients Urinary Catheter Date of Insertion: 04/26/21 Urinary Catheter Time of Insertion: 02:53 Date Urinary Catheter Removed: 04/27/21 Time Urinary Catheter Discontinued: 14:05 Data : 04/26/21 02:40 04/27/21 04:17 Micro: Microbiology 04/26/21 15:28 Gram Stain - Final Sputum - Endotracheal Tube Aspirate Sputum Culture - Preliminary A&P Assessment and plan (1) Drug overdose: Seroquel 30 tablets of 20 mg No QTC prolongation no hemodynamic instability Poison control contact in ER. Cardiac tele Suicide precautions On 96 hour hold Psychiatry consult once extubated Status: Acute Qualifiers: Encounter type: initial encounter Injury intent: intentional self-harm Qualified Code(s): T50.902A - Poisoning by unspecified drugs, medicaments and biological substances, intentional self-harm, initial encounter (2) Respiratory failure: Wean sedation Spontaneous breathing trials Tolerated extubate later today. Status: Acute Additional A&P Information Full code DVT prophylaxis Lovenox 96-hour hold for suicide attempt, will need psych evaluation after extubation Attestations Medical Necessity Statement*: Continue hospitalization for management of mechanical vent and drug overdose Time Spent in Patient Care: Greater than 35 minutes (>than 50% of time spent in counselling and/or direct pt care on unit) . Critical Care Time: Critical Care Time (min): 45 Coding Level of Care Code Acute Bookmobile Librarian for Chg Fwd Diagnoses Drug overdose T50.902A Encounter type: initial encounter Injury intent: intentional self-harm Respiratory failure J96.90
--- NOTE | 2021-04-27 19:28 | PC.NURSE ---
Report given to JOSE Klein.
--- NOTE | 2021-04-27 19:36 | PC.NURSE ---
Sift summary: Pt alert and oriented. NO aggression noted. No self harming behaviors noted this shift. On e-on-one sitter at bedside throughout shift for 96 hour hold. Pt extubated around 1100 to 2lpm/NC. He is ow o room air, O2 sats greater than 92% Nuno cath removed this afternoon. Pt has urinated 3 times since without difficulty. Pt is now garbed in paper scrubs with elopement bracelets per Suicide policy. Sinus rhythm with no ectopy noted on monitor throughout shift. Pt's upper lip is puffy from ETT. Pt has eaten very little Pt has spent majority of shift resting in bed with eyes closed.
[2021-04-27] MEDS: phenol oral Spray 177 mL 3 SPRAY MUCOUS MEM (21:41)
[2021-04-28] VITALS (21 sets, daily range): BP systolic 105–145; BP diastolic 57–94; PULSE 71–87; RESP 15–24; TEMP 36.3–37.6; O2SAT 89–98
--- NOTE | 2021-04-28 01:40 | PC.NURSE ---
ASSUMING CARE Patient is resting in bed with eyes closed on room air. Alert and oriented x 4. D51/2NS running at 75 mL/hour. Urinating via urinal with no issues. 1:1 sitter at bedside. Patient denies wanting to hurt himself or at this time and states that he does not remember what happened. Patient is asking nurse who brought him to the hospital. Patient informed of this information and denies any needs at this time.
[2021-04-28] MEDS: dextrose 5%-sod chloride 0.45% 1,000 ML 75 ML IV ×2 (02:56→05:33)
[2021-04-28 05:02] LABS: Basophils # 0.1 10^3/uL (0.0-0.1); Basophils % 0.4 %; Eosinophils # 0.1 10^3/uL (0.0-0.8); Eosinophils % 0.7 %; Hematocrit 34.4 % (42.0-52.0); Hemoglobin 11.3 g/dL (11.7-16.6); Lymphocytes # 1.7 10^3/uL (0.8-4.8); Mean Corpuscular HGB Conc 32.8 g/dL (30.0-36.0); Mean Corpuscular Hemoglobin 31.4 pg (28.0-34.0); Mean Corpuscular Volume 95.6 fL (80-94); Mean Platelet Volume 9.5 fL (7.4-10.4); Monocytes # 1.4 10^3/uL (0.2-0.9); Monocytes % 12.5 %; Neutrophils % 71.1 %; Nucleated Red Blood Cells % 0 %; Platelet Count 227 10^3/cmm (130-400); Red Cell Distribution Width 12.8 % (12.1-15.1); White Blood Count 11.4 10^3/uL (4.0-10.0)
[2021-04-28 05:11] LABS: Chloride 104 mmol/L (98-107); Potassium 3.8 mmol/L (3.5-5.1); Sodium 136 mmol/L (136-145)
[2021-04-28 05:49] LABS: Alanine Aminotransferase 11 U/L (0-41); Albumin Level 3.3 g/dL (3.5-5.2); Alkaline Phosphatase 83 IU/L (40-130); Anion Gap 10.8 (5-19); Aspartate Amino Transferase 12 U/L (0-40); Blood Urea Nitrogen 8 mg/dL (6-20); Calcium 8.9 mg/dL (8.5-10.5); Carbon Dioxide 25 mmol/L (22-29); Globulin 2.2 g/dL (1.3-4.6); Glomerular Filtration Rate 99.6 mL/min (90-130); Glucose 125 mg/dL (65-115); Osmolality Calculated 282 mOsm/kg (285-295); Total Bilirubin 0.4 mg/dL (0.15-1.2); Total Protein 5.5 g/dL (6.6-8.7)
--- NOTE | 2021-04-28 07:08 | PC.NURSE ---
SHIFT SUMMARY Patient rested well throughout the shift. Patient seems in good spirits conversing and laughing with nurse while awake. Alert and oriented x 4. D51/2 NS still running at 75 mL/hour.
[2021-04-28] MEDS: enoxaparin 40 mg/0.4 mL Syringe SUBCUT (08:54)
--- NOTE | 2021-04-28 11:57 | PM.DCS ---
Discharge Providers Date of Admission: 04/26/21 03:28 Date of Discharge: April 28, 2021 Attending Provider at Admission: Ze Garibay MD Attending Provider at Discharge: Mona Morel Diagnoses at Discharge Discharge Diagnosis (1) Drug overdose: Status: Acute Qualifiers: Encounter type: initial encounter Injury intent: intentional self-harm Qualified Code(s): T50.902A - Poisoning by unspecified drugs, medicaments and biological substances, intentional self-harm, initial encounter (2) Respiratory failure: Status: Acute Reason for Visit Reason for Visit: overdose Hospital Course Hospital Course 55 year old male who has history of substance abuse, psychiatric history was admitted in March when he was pulled over by law enforcement, he was endorsing passive suicidal thoughts at that time which were triggered by thoughts having to go back to [facility] presented today for drug overdose. Most of the information has been given by EMS and the ER physician. Patient took 30 tablets of 100 mg of Seroquel. He took these tablets to prevent going to penitentiary today, he called suicidal hotline before taking these tablets. Hotline called 911 who brought him to the ER. He was obtunded with GCS less than 8 hence was intubated. Endotracheal tube size 8 secured at teeth 24 cm, hypercapnia noted on ABG his minute ventilation increased after adjustment of vent settings, current vent settings FiO2 35% PEEP 5 tidal volume 550 respiratory rate 14. No QTC prolongation, normal CBC and BMP, mildly high lactic acid. U tox positive for methamphetamine, marijuana. Upon admission to the hospital patient remained on mechanical ventilation until successful extubation on 04/27/2021. Mental status had returned to baseline. He was able to tolerate oral intake. Accepted to inpatient psychiatric unit during which time he was transferred. Of note patient did have low-grade temp however no clear evidence of acute infectious process. Recommended to continue monitoring for development any new infectious process. Transferred in stable condition. Physical Exam Narrative: EXAM NARRATIVE: General- Alert awake and oriented HEENT- grossly unremarkable Chest- clear to auscultation bilaterally Abdomen -soft nontender nondistended Extremities-no edema Urinary Catheter Management^: Nuno: Cath Placed During This Visit: yes, but has since been removed by the nurse Reason for Continuing Indwelling Catheter: Accurate Measurement of Urinary Output in Critically Ill Patients Urinary Catheter Date of Insertion: 04/26/21 Urinary Catheter Time of Insertion: 02:53 Date Urinary Catheter Removed: 04/27/21 Time Urinary Catheter Discontinued: 14:05 Discharge Data Data Completed and Pending: Completed Studies During Hospitalization Category Date Time Status XR chest 1[place] [id number] Urgent Exams 04/26/21 02:39 Completed Labs from last 24 hours 04/28/21 04/28/21 04:26 04:26 WBC 11.4 H RBC 3.60 L Hgb 11.3 L Hct 34.4 L MCV 95.6 H MCH 31.4 MCHC 32.8 RDW 12.8 Plt Count 227 MPV 9.5 Neut % (Auto) 71.1 Lymph % (Auto) 15.0 [place] % (Auto) 12.5 Eos % (Auto) 0.7 Baso % (Auto) 0.4 Neut # (Auto) 8.10 H Lymph # (Auto) 1.7 [place] # (Auto) 1.4 H Eos # (Auto) 0.1 Baso # (Auto) 0.1 Nucleated RBC % (a uto) 0 Nucleated RBCs # 0.0 Sodium 136 Potassium 3.8 Chloride 104 Carbon Dioxide 25 Anion Gap 10.8 BUN 8 Creatinine 0.8 GFR Calculation 99.6 Glucose 125 H Calculated Osmolal ity 282 L Calcium 8.9 Total Bilirubin 0.4 AST 12 ALT 11 Alkaline Phosphata se 83 Total Protein 5.5 L Albumin 3.3 L Globulin 2.2 Vitals: Last Vital Signs Temp 98.5 F 04/28/21 10:00 Pulse 78 04/28/21 11:30 Resp 20 H 04/28/21 11:30 BP 139/84 04/28/21 10:00 Pulse Ox 94 04/28/21 11:30 Discharge Plan Discharge Patient Disposition: Xfer Psychiatric Hosp Condition: Stable Prescriptions: No Action latanoprost 0.005 % Drops 1 drp ophthalmic (eye) BEDTIME RF: 0 citalopram 40 mg Tablet 40 mg PO DAILY RF: 0 lamotrigine 25 mg Tablet 50 mg PO BID RF: 0 divalproex 500 mg Tablet Extended Release 24 Hr 500 mg PO QAM RF: 0 divalproex 500 mg Tablet Extended Release 24 Hr 1,000 mg PO QPM RF: 0 gabapentin 300 mg Capsule 600 mg PO DAILY RF: 0 gabapentin 300 mg Capsule 900 mg PO QAM RF: 0 albuterol sulfate 90 mcg/actuation Hfa Aerosol Inhaler 2 puff INHALATION QID PRN (Reason: Shortness Of Breath) RF: 0 buspirone 15 mg Tablet 15 mg PO QID RF: 0 fluticasone propion-salmeterol [Wixela Inhub] 250-50 mcg/dose Blister With Device 1 inh INHALATION BID RF: 0 quetiapine 300 mg Tablet 300 mg PO BEDTIME RF: 0 quetiapine 100 mg Tablet 100 mg PO QAM RF: 0 quetiapine 100 mg Tablet 150 mg PO DAILY@17 RF: 0 timolol maleate 0.5 % Drops 1 drp OPHTHALMIC (EYE) Q12H RF: 0 tizanidine 4 mg Capsule 8 mg PO Q8H PRN (Reason: Muscle Pain) RF: 0 Discharge Diet: Regular Discharge Activity: Increase activity as tolerated Activity Restrictions/Additional Instructions: Transferred to inpatient psychiatric unit. Discharge Attestations Time Spent in Discharge Care*: greater than 30 min Specific Discharge Activities: educating patient, educating and/or supporting family/caregiver, discussing with pcp/other providers, discussing with director of casework/social workers/dc planners, documenting/other paperwork and evaluating patient/reviewing data Status at Discharge: Cognitive status at discharge: cognitively intact, Behavioral status at discharge: cooperative, Functional status at discharge: independent ambulation Overall status at discharge: patient is progressing back to baseline Quality Metrics Clinical Quality Measures During this hospital stay, did patient experience: None Coding Level of Care Code Acute g FW DC note Diagnoses Drug overdose T50.902A Encounter type: initial encounter Injury intent: intentional self-harm Respiratory failure J96.90
--- NOTE | 2021-04-28 12:11 | PC.NURSE ---
REceived transfer orders. IV removed. REport given to NPU. PT transferred via wheelchair with care team assistant.
--- NOTE | 2021-04-28 12:11 | PC.NURSE ---
Belongings sent with patient included clothes, shoes, wallet, and keys.
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
[2021-04-28] MEDS: acetaminophen 325 mg Tablet 650 MG PO (18:49)
[2021-04-28] MEDS: timolol 0.5% Op Soln 5 mL Btl 1 DROP EYE-BOTH (21:14)
[2021-04-28] MEDS: latanoprost 0.005% Op Soln 2.5 mL Btl 1 DROP EYE-BOTH (21:15)
[2021-04-28] MEDS: divalproex ER 500 mg Tablet (24H) 1000 MG PO (21:16)
[2021-04-28] MEDS: BuSPIRONE 10 mg Tablet 15 MG PO (21:16)
[2021-04-28] MEDS: quetiapine 300 mg Tablet PO (21:18)
[2021-04-28] MEDS: lamoTRIgine 25 mg Tablet 50 MG PO (21:19)
[2021-04-29 06:00] VITALS: BP 127/82; PULSE 78; RESP 18; TEMP 37; O2SAT 95
[2021-04-29] MEDS: lamoTRIgine 25 mg Tablet 50 MG PO ×2 (09:15→20:56)
[2021-04-29 09:16] VITALS: PULSE 77; RESP 16; O2SAT 96
[2021-04-29] MEDS: quetiapine 100 mg Tablet PO (09:16)
[2021-04-29] MEDS: BuSPIRONE 10 mg Tablet 15 MG PO ×4 (09:16→20:57)
[2021-04-29] MEDS: divalproex ER 500 mg Tablet (24H) PO (09:16)
[2021-04-29] MEDS: gabapentin 300 mg Capsule 600 MG PO (09:17)
[2021-04-29] MEDS: citalopram 20 mg Tablet 40 MG PO (09:17)
[2021-04-29] MEDS: timolol 0.5% Op Soln 5 mL Btl 1 DROP EYE-BOTH (09:17)
[2021-04-29 14:00] VITALS: BP 127/82; PULSE 77; RESP 16; TEMP 37; O2SAT 96
[2021-04-29 15:27] VITALS: BP 126/84; PULSE 81; RESP 17; TEMP 36.7; O2SAT 99
[2021-04-29] MEDS: quetiapine 300 mg Tablet 150 MG PO (17:44)
[2021-04-29] MEDS: gabapentin 300 mg Capsule 900 MG PO (17:44)
--- NOTE | 2021-04-29 17:56 | P.PN_ITS ---
Subjective NPU Subjective: Interval history: Abimael presents today reporting that he did work with Robert last night and hopefully secured his vehicle and avoided it being impounded anything he is very focused on making 2 appointments he reports he has at [facility] in [place] on Saturday. We were able to confirm one of the appointments on Saturday but not the other. He was following in the what is the use? As he was lamenting about how his whole does not end until after that date. He reports that he was eating okay and sleeping a little better. Mental Status Exam MSE Comments: This is a well-nourished, well-developed bald head white male with hospital scrubs on with adequate grooming and limited eye contact. No abnormal movements except for mild psychomotor retardation. Cooperative with dalton brown in mild distress. Speech was slightly decreased rate normal volume. Mood described as okay, affect subdued. Thought process organized. Thought content: Patient denied suicidal or homicidal ideation, there were no delusions reported or noted, he denied any auditory or visual hallucinations. Attention and concentration were intact and memory appeared reliable but none were formally tested. He is alert and oriented x3. Insight and judgment are limited, impulse control is impaired but improving. Vitals/I&O/Wt Last Vital Signs Temp 98.0 F 04/29/21 15:27 Pulse 81 04/29/21 15:27 Resp 17 04/29/21 15:27 BP 126/84 04/29/21 15:27 Pulse Ox 99 04/29/21 15:27 Weight last 48 hrs Weight 79.968 kg Physical Exam Urinary Catheter Management^: Nuno: Cath Placed During This Visit: yes, but has since been removed by the nurse Reason for Continuing Indwelling Catheter: Accurate Measurement of Urinary Output in Critically Ill Patients Urinary Catheter Date of Insertion: 04/26/21 Urinary Catheter Time of Insertion: 02:53 Date Urinary Catheter Removed: 04/27/21 Time Urinary Catheter Discontinued: 14:05 Data NPU : 04/28/21 04:26 04/28/21 04:26 A&P Additional A&P Information (1) Drug overdose: (2) Adjustment disorder with anxiety: (3) Respiratory failure: (4) History of substance abuse: (5) PTSD (post-traumatic stress disorder): (6) Depression: Additional A&P Information This is a 55-year-old white male with a long history of addiction, trauma, mood issues, legal difficulties with recent intentional overdose with reports of it being related to fear of impending legal challenges presents reporting that he knows what he did was stupid and he would like to leave. 1. Continue current medication. 2. Continue every 15 minute checks for safety. 3. Encourage individual, group and milieu therapies. 4. Encourage sober living treatment after discharge at the highest level of care to which he is willing to commit. 5. Monitor and evaluate for safety given recent overdose and 96-hour hold. Involuntary Hold Information 96 Hour Hold: 96 Hour Involuntary Admission: Yes 96 Hour Hold Ending Date: 05/02/21 96 Hour Hold Ending Time: 03:03 Attestations NPU Medical Necessity Statement*: Inpatient hospitalization is medically necessary and the clinically appropriate intervention at this time. We will monitor medications and make changes as indicated. Likely length of stay 2-4 days. Coding Level of Care Code Acute Director Of Curriculum And Instruction for Marcio Carrasco
[2021-04-29 20:49] VITALS: BP 105/73; PULSE 91; RESP 18; TEMP 36.9; O2SAT 99
[2021-04-29] MEDS: divalproex ER 500 mg Tablet (24H) 1000 MG PO (20:56)
[2021-04-29] MEDS: quetiapine 300 mg Tablet PO (20:57)
--- NOTE | 2021-04-29 21:48 | PC.NURSE ---
pt refused his scheduled eye drops this noc. states he only takes them as he feels he needs them .
[2021-04-30 06:00] VITALS: BP 126/85; PULSE 85; RESP 18; TEMP 36.3; O2SAT 94
[2021-04-30 07:51] VITALS: PULSE 75; RESP 18; O2SAT 98
[2021-04-30] MEDS: quetiapine 100 mg Tablet PO (08:06)
[2021-04-30] MEDS: lamoTRIgine 25 mg Tablet 50 MG PO ×2 (08:06→20:50)
[2021-04-30] MEDS: gabapentin 300 mg Capsule 600 MG PO (08:06)
[2021-04-30] MEDS: BuSPIRONE 10 mg Tablet 15 MG PO ×4 (08:06→20:49)
[2021-04-30] MEDS: citalopram 20 mg Tablet 40 MG PO (08:06)
--- NOTE | 2021-04-30 08:08 | PC.NURSE ---
refused scheduled Eye drops this morning
[2021-04-30] MEDS: divalproex ER 500 mg Tablet (24H) PO (08:35)
[2021-04-30 14:00] VITALS: BP 141/90; PULSE 70; RESP 17; TEMP 36.9; O2SAT 96
[2021-04-30] MEDS: quetiapine 300 mg Tablet 150 MG PO (17:13)
[2021-04-30] MEDS: gabapentin 300 mg Capsule 900 MG PO (17:13)
--- NOTE | 2021-04-30 20:01 | P.PN_ITS ---
Subjective NPU Subjective: Interval history: Abimael presented today reporting that he has 2 appointments close to each other even though he only discovered the one appointment at [facility]. He reports he is feeling better he continued to deny suicidality and seemed more engaged. Discussed discharge in the morning give him enough time to get his truck and get to his appointment. Mental Status Exam MSE Comments: This is a well-nourished, well-developed bald head white male with hospital scrubs on with adequate grooming and limited eye contact. No abnormal movements except for mild psychomotor retardation. Cooperative with exam in no acute distress. Speech was more normal rate and volume. Mood described as better, affect less subdued. Thought process organized. Thought content: Patient denied suicidal or homicidal ideation, there were no delusions reported or noted, he denied any auditory or visual hallucinations. Attention and concentration were intact and memory appeared reliable but none were formally tested. He is alert and oriented x3. Insight and judgment are improving, impulse control is limited, but improving. Vitals/I&O/Wt Last Vital Signs Temp 98.4 F 04/30/21 14:00 Pulse 70 04/30/21 14:00 Resp 17 04/30/21 14:00 BP 141/90 04/30/21 14:00 Pulse Ox 96 04/30/21 14:00 Weight last 48 hrs Weight 79.832 kg Physical Exam Urinary Catheter Management^: Nuno: Cath Placed During This Visit: yes, but has since been removed by the nurse Reason for Continuing Indwelling Catheter: Accurate Measurement of Urinary Output in Critically Ill Patients Urinary Catheter Date of Insertion: 04/26/21 Urinary Catheter Time of Insertion: 02:53 Date Urinary Catheter Removed: 04/27/21 Time Urinary Catheter Discontinued: 14:05 Data NPU : 04/28/21 04:26 04/28/21 04:26 A&P Additional A&P Information (1) Drug overdose: (2) Adjustment disorder with anxiety: (3) Respiratory failure: (4) History of substance abuse: (5) PTSD (post-traumatic stress disorder): (6) Depression: Additional A&P Information This is a 55-year-old white male with a long history of addiction, trauma, mood issues, legal difficulties with recent intentional overdose with reports of it being related to fear of impending legal challenges presents reporting that he knows what he did was stupid and he would like to leave. 1. Continue current medication. 2. Continue every 15 minute checks for safety. 3. Encourage individual, group and milieu therapies. 4. Encourage sober living treatment after discharge at the highest level of care to which he is willing to commit. 5. Monitor and evaluate for safety given recent overdose and 96-hour hold. Involuntary Hold Information 96 Hour Hold: 96 Hour Involuntary Admission: Yes 96 Hour Hold Ending Date: 05/02/21 96 Hour Hold Ending Time: 03:03 Attestations NPU Medical Necessity Statement*: Inpatient hospitalization is medically necessary and the clinically appropriate intervention at this time. We will monitor medications and make changes as indicated. Likely length of stay 1-3 days. Coding Level of Care Code Acute Health Workers for Marcio Carrasco
[2021-04-30] MEDS: divalproex ER 500 mg Tablet (24H) 1000 MG PO (20:49)
[2021-04-30] MEDS: quetiapine 300 mg Tablet PO (20:49)
[2021-04-30] MEDS: timolol 0.5% Op Soln 5 mL Btl 1 DROP EYE-BOTH (20:53)
[2021-04-30] MEDS: latanoprost 0.005% Op Soln 2.5 mL Btl 1 DROP EYE-BOTH (20:53)
[2021-04-30 21:56] VITALS: PULSE 72; RESP 16; O2SAT 96
[2021-04-30 22:00] VITALS: BP 129/83; PULSE 79; RESP 24; TEMP 36.8; O2SAT 97
[2021-04-30] MEDS: hyDROXYzine 25 mg Capsule 50 MG PO (23:48)
--- NOTE | 2021-04-30 23:50 | PC.NURSE ---
pt woke up from a nightmare. pt noted to have increased anxiety and to be very tearful. Vistaril 50mg po given.
[2021-05-01] MEDS: OLANZapine 5 mg ODT PO (01:33)
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
[2021-05-01 06:00] VITALS: BP 137/91; PULSE 87; RESP 18; TEMP 36.8; O2SAT 97
[2021-05-01 07:20] VITALS: BP 137/91; PULSE 87; RESP 18; TEMP 36.8; O2SAT 97
[2021-05-01] MEDS: divalproex ER 500 mg Tablet (24H) PO (08:05)
[2021-05-01] MEDS: lamoTRIgine 25 mg Tablet 50 MG PO (08:06)
[2021-05-01] MEDS: BuSPIRONE 10 mg Tablet 15 MG PO (08:06)
[2021-05-01] MEDS: citalopram 20 mg Tablet 40 MG PO (08:07)
[2021-05-01] MEDS: quetiapine 100 mg Tablet PO (08:07)
[2021-05-01] MEDS: gabapentin 300 mg Capsule 600 MG PO (08:07)
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
--- NOTE | 2021-05-01 12:49 | PC.SOCIAL ---
Per Patient request notified his chief client officer that he was in the hospital from 04/26/2021-05/01/2021. He verbalized receipt of information.
== END 2021-05-01 08:21 | disposition home or self-care (01) | DRG 917 ==
LOC: ER 03:45 → ICU 07:24 → NP 04-28 11:52
PROVIDERS: Hospitalist; Admitting Provider Internal Medicine; Emergency Provider Emergency Medicine; Visit Provider Psychiatry & Neurology Psychiatry
DX: T43.592A Poisoning by other antipsychotics and neuroleptics, intentional self-harm, initial encounter (principal); J96.90 Respiratory failure, unspecified, unspecified whether with hypoxia or hypercapnia; F12.90 Cannabis use, unspecified, uncomplicated; F15.90 Other stimulant use, unspecified, uncomplicated; J44.9 Chronic obstructive pulmonary disease, unspecified; E78.5 Hyperlipidemia, unspecified; I10 Essential (primary) hypertension; F32.9 Major depressive disorder, single episode, unspecified; Z79.51 Long term (current) use of inhaled steroids; Z81.8 Family history of other mental and behavioral disorders; F17.210 Nicotine dependence, cigarettes, uncomplicated; F43.10 Post-traumatic stress disorder, unspecified; F43.22 Adjustment disorder with anxiety
CPT/HCPCS: 31500; 36415; 36600; 51702; 71045; 80048; 80051; 80053; 80164; 80306; 80307; 82330; 82803; 82805; 83605; 83735; 85025; 85610; 87070; 87077; 87205; 93005; 94002; 94003; 94640; 94799; 96360; 96361; 96372; 99291; A4570; J1650; J2704; J3010; J3411; J3490; J7030; J7799

== ENCOUNTER 2022-01-02 16:05 | Inpatient (IN) | payer MEDICARE, MEDICAID, SELFPAY ==
[2022-01-02 16:10] VITALS: BP 199/110; PULSE 98; RESP 18; TEMP 37.1; O2SAT 97; BMI 25.0
[2022-01-02 16:23] VITALS: BP 199/110; PULSE 98; RESP 18; TEMP 37.1; O2SAT 97
[2022-01-02 16:49] LABS: Basophils # 0.1 10^3/uL (0.0-0.1); Basophils % 0.6 %; Eosinophils # 0.2 10^3/uL (0.0-0.8); Eosinophils % 2.1 %; Hematocrit 41.7 % (42.0-52.0); Hemoglobin 13.6 g/dL (11.7-16.6); Lymphocytes % 22.5 %; Mean Corpuscular HGB Conc 32.6 g/dL (30.0-36.0); Mean Corpuscular Hemoglobin 31.1 pg (28.0-34.0); Mean Corpuscular Volume 95.2 fl (80-94); Mean Platelet Volume 9.4 fL (7.4-10.4); Monocytes % 11.1 %; Neutrophils # 5.54 10^3/uL (1.8-7.7); Neutrophils % 63.4 %; Nucleated Red Blood Cells % 0 %; Platelet Count 330 10^3/cmm (130-400); Red Blood Count 4.38 10^6/uL (4.1-5.3); White Blood Count 8.7 10^3/uL (4.0-10.0)
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
[2022-01-02] MEDS: amlodipine 10 mg Tablet PO (17:10)
[2022-01-02] MEDS: hyDRALAzine 20 mg/mL INJ 1 mL IM (17:10)
[2022-01-02 17:28] LABS: Alanine Aminotransferase 19 U/L (0-41); Albumin Level 4.5 g/dL (3.5-5.2); Alkaline Phosphatase 132 IU/L (40-130); Anion Gap 15.4 (5-19); Aspartate Amino Transferase 27 U/L (0-40); Blood Urea Nitrogen 19 mg/dL (6-20); Calcium 10.1 mg/dL (8.5-10.5); Carbon Dioxide 25 mmol/L (22-29); Chloride 102 mmol/L (98-107); Globulin 3.1 g/dL (1.3-4.6); Glomerular Filtration Rate 76.7 mL/min (90-130); Glucose 112 mg/dL (65-115); Osmolality Calculated 289 mOsm/kg (285-295); Potassium 4.4 mmol/L (3.5-5.1); Sodium 138 mmol/L (136-145); Total Bilirubin 0.2 mg/dL (0.15-1.2); Total Protein 7.6 g/dL (6.6-8.7)
[2022-01-02 17:38] VITALS: BP 196/112
[2022-01-02 17:40] LABS: Acetaminophen < 5.0 ug/mL (10-30); Salicylate < 0.3 mg/dL (3-10)
--- NOTE | 2022-01-02 18:10 | PC.NURSE ---
PATIENT STATES THAT HE WOULD LIKE SOMETHING FOR ANXIETY. PROVIDER NOTIFIED.
[2022-01-02] MEDS: LORazepam 2 mg Tablet PO (18:29)
[2022-01-02 18:30] VITALS: BP 178/108
[2022-01-02] MEDS: cloNIDine 0.1 mg Tablet PO (18:30)
[2022-01-02 19:34] VITALS: BP 171/103; PULSE 98; RESP 20; TEMP 36.6; O2SAT 97
[2022-01-02] MEDS: nicotine 2 mg Gum BUCCAL (20:26)
[2022-01-02] MEDS: gabapentin 300 mg Capsule PO (20:36)
[2022-01-02] MEDS: divalproex ER 500 mg Tablet (24H) 1000 MG PO (20:36)
[2022-01-02] MEDS: BuSPIRONE 10 mg Tablet 15 MG PO (20:36)
[2022-01-02] MEDS: quetiapine 100 mg Tablet PO (20:36)
[2022-01-02] MEDS: timolol 0.5% Op Soln 5 mL Btl 1 DROP EYE-BOTH (20:37)
[2022-01-02] MEDS: latanoprost 0.005% Op Soln 2.5 mL Btl 1 DROP EYE-BOTH (20:37)
[2022-01-02 20:45] LABS: Valproic Acid Level 61.4 ug/mL (50-100)
[2022-01-02] MEDS: tizanidine 4 mg Tablet 8 MG PO (20:46)
[2022-01-02] MEDS: guaiFENesin-dextromethorphan UDC 10 mL PO (21:40)
[2022-01-02] MEDS: trazodone 50 mg Tablet PO (22:03)
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
[2022-01-03] MEDS: nicotine 2 mg Gum BUCCAL ×3 (01:20→17:29)
[2022-01-03] MEDS: guaiFENesin-dextromethorphan UDC 10 mL PO (03:16)
[2022-01-03 04:30] VITALS: PULSE 99; RESP 16; O2SAT 96
[2022-01-03] MEDS: albuterol 8 gm MDI 2 PUFF INHALATION (04:30)
[2022-01-03 06:00] VITALS: BP 131/69; PULSE 81; RESP 20; TEMP 36.6; O2SAT 97
[2022-01-03] MEDS: acetaminophen 325 mg Tablet 650 MG PO (06:14)
[2022-01-03] MEDS: citalopram 20 mg Tablet 40 MG PO (08:12)
[2022-01-03] MEDS: lamoTRIgine 25 mg Tablet 50 MG PO ×2 (08:12→17:28)
[2022-01-03] MEDS: BuSPIRONE 10 mg Tablet 15 MG PO ×4 (08:12→20:37)
[2022-01-03] MEDS: gabapentin 300 mg Capsule PO ×3 (08:12→20:37)
[2022-01-03] MEDS: tizanidine 4 mg Tablet 8 MG PO ×2 (08:13→17:29)
[2022-01-03] MEDS: timolol 0.5% Op Soln 5 mL Btl 1 DROP EYE-BOTH ×2 (08:13→20:48)
[2022-01-03] MEDS: divalproex ER 500 mg Tablet (24H) PO (08:13)
[2022-01-03] MEDS: quetiapine 100 mg Tablet PO ×2 (08:15→20:38)
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
[2022-01-03 14:00] VITALS: BP 133/76; PULSE 88; RESP 18; TEMP 36.6; O2SAT 98
[2022-01-03] MEDS: quetiapine 100 mg Tablet 150 MG PO (17:29)
[2022-01-03] MEDS: divalproex ER 500 mg Tablet (24H) 1000 MG PO (20:35)
[2022-01-03] MEDS: latanoprost 0.005% Op Soln 2.5 mL Btl 1 DROP EYE-BOTH (20:48)
[2022-01-03 22:00] VITALS: BP 121/77; PULSE 83; RESP 18; TEMP 36.4; O2SAT 98
[2022-01-04] MEDS: nicotine 2 mg Gum BUCCAL ×3 (00:48→10:47)
[2022-01-04 06:00] VITALS: BP 160/105; PULSE 73; RESP 20; TEMP 36.8; O2SAT 96
[2022-01-04] MEDS: BuSPIRONE 10 mg Tablet 15 MG PO ×2 (09:03→13:29)
[2022-01-04] MEDS: citalopram 20 mg Tablet 40 MG PO (09:04)
[2022-01-04] MEDS: lamoTRIgine 25 mg Tablet 50 MG PO (09:04)
[2022-01-04] MEDS: gabapentin 300 mg Capsule PO ×2 (09:04→14:18)
[2022-01-04] MEDS: tizanidine 4 mg Tablet 8 MG PO (09:04)
[2022-01-04] MEDS: divalproex ER 500 mg Tablet (24H) PO (09:04)
[2022-01-04] MEDS: timolol 0.5% Op Soln 5 mL Btl 1 DROP EYE-BOTH (09:12)
[2022-01-04] MEDS: quetiapine 100 mg Tablet PO (09:13)
[2022-01-04 14:00] VITALS: BP 154/96; PULSE 73; RESP 18; TEMP 36.8; O2SAT 97
[2022-01-04 15:56] VITALS: PULSE 75; RESP 18; O2SAT 97
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
[2022-01-04] MEDS: albuterol 8 gm MDI 2 PUFF INHALATION (15:57)
[2022-01-04 16:14] VITALS: PULSE 75; RESP 18; O2SAT 97
== END 2022-01-04 16:25 | disposition home or self-care (01) | DRG 881 ==
LOC: ER 17:03 → NP 18:58
PROVIDERS: Admitting Provider Psychiatry & Neurology Psychiatry; Emergency Provider Family Medicine; Visit Provider Psychiatry & Neurology Psychiatry
DX: F32.9 Major depressive disorder, single episode, unspecified (principal); R45.851 Suicidal ideations; I10 Essential (primary) hypertension; J44.9 Chronic obstructive pulmonary disease, unspecified; E78.5 Hyperlipidemia, unspecified; F43.10 Post-traumatic stress disorder, unspecified; Z63.4 Disappearance and death of family member
CPT/HCPCS: 80053; 80164; 80307; 85025; 94640; 96372; 97165; 99285; J0360; J3535

== ENCOUNTER 2023-07-18 11:47 | Emergency (ER) | payer MEDICARE, MEDICAID, SELFPAY ==
--- NOTE | 2023-07-18 11:50 | ED.C_ITS ---
HPI - Psych General: Chief Complaint: Psychiatric Symptoms Stated Complaint: si Time Seen by Provider: 07/18/23 11:49 Source: patient and EMS Mode of arrival: ambulatory Limitations: no limitations History of Present Illness: Patient is a 57-year-old male who presents to ED today via EMS after he made suicidal statements after getting pulled over by police and then finding methamphetamine remnants in an old pill bottle. States the pill bottle was given to him by a friend and was in his glove box. He states he had no idea it had remnants of methamphetamine in it. He states he is already on probation so when he got pulled over and they found it he thought he was going to go to intermediate so he began sobbing and made a suicidal comment thus prompting their mental health evaluation here. Upon arrival patient tells me that he was later told he is not going to intermediate and thus has calm down . States he is not suicidal at this time. MD complaint: suicidal ideation Onset (ago): hour(s) Duration: resolved prior to arrival History of same: Yes Relieving factors: none Exacerbating factors: other (stress) Context: significant life stressor Associated psychiatric symptoms: none Associated symptoms: Reports no associated symptoms; Deny homicidal ideation or suicidal ideation Treatments prior to arrival: none Review of Systems Psych: Denies: hopelessness, loss of interest, suicidal ideation or homicidal ideation [facility] ED PFSH: Medical History Back pain COPD (chronic obstructive pulmonary disease) Dyslipidemia Hypertension Major depressive disorder Surgical History H/O neck surgery Family History Other CAD (coronary artery disease) Stroke Social History Smoking and tobacco status: unknown if ever smoked Alcohol intake: unknown Substance/Drug Use: current Physical Exam Psych: COMMON NORMALS: mental status grossly normal, Normal thought process present, cooperative, normal affect, speech normal, activity/motor behavior normal, denies hallucinations, denies homicidal ideation and denies suicidal ideation APPEARANCE: Yes grossly normal ATTITUDE: Yes calm ACTIVITY/MOTOR BEHAVIOR: Yes appropriate eye contact SPEECH: Yes normal speech MOOD & AFFECT: Yes euthymic mood THOUGHT PROCESS: Normal thought process present THOUGHT CONTENT: Yes Normal thought content present ATTENTION/CONCENTRATION: Yes attention grossly intact and Yes concentration grossly intact MEMORY/COGNITION: Yes memory grossly intact and Yes cognition grossly intact INSIGHT: Good insight present (Psych) JUDGEMENT: Good judgement present (Psych) Course Consultations: Consultation #1: Dr. Shelton-states patient is stable for discharge Vital Signs: Vital signs: Vital Signs Temperature 98.1 F 07/18/23 12:24 Pulse Rate 80 07/18/23 12:24 Blood Pressure 160/110 07/18/23 12:24 Pulse Oximetry 99 07/18/23 12:24 Oxygen Delivery Me thod Room Air 07/18/23 12:24 MDM - Psych Medical Decision Making Patient states he is not suicidal and he only made the comment because he thought he was going to intermediate. I did discuss with Dr. Shelton who feels more than comfortable allowing patient discharge. Return ED precautions discussed with patient. Lab Data 07/18/23 12:16 07/18/23 12:16 Laboratory Results WBC 7.54 10^3/uL (3.29-11.43) 07/18/23 12:16 RBC 4.43 10^6/uL (3.85-5.65) 07/18/23 12:16 Hgb 13.90 g/dL (11.27-16.99) 07/18/23 12:16 Hct 42.4 % (37-53) 07/18/23 12:16 MCV 95.7 fl (82-101) 07/18/23 12:16 MCH 31.4 pg (27-33) 07/18/23 12:16 MCHC 32.8 g/dL (30-55) 07/18/23 12:16 RDW 12.7 % (12.1-15.1) 07/18/23 12:16 Plt Count 278 10^3/cmm (157-399) 07/18/23 12:16 MPV 9.3 fL (7.4-10.4) 07/18/23 12:16 Neut % (Auto) 63.3 % 07/18/23 12:16 Lymph % (Auto) 25.5 % 07/18/23 12:16 [place] % (Auto) 8.2 % 07/18/23 12:16 Eos % (Auto) 2.1 % 07/18/23 12:16 Baso % (Auto) 0.5 % 07/18/23 12:16 Neut # (Auto) 4.77 10^3/uL (1.8-7.7) 07/18/23 12:16 Lymph # (Auto) 1.9 10^3/uL (0.8-4.8) 07/18/23 12:16 [place] # (Auto) 0.6 10^3/uL (0.2-0.9) 07/18/23 12:16 Eos # (Auto) 0.2 10^3/uL (0.0-0.8) 07/18/23 12:16 Baso # (Auto) 0.0 10^3/uL (0.0-0.1) 07/18/23 12:16 Nucleated RBC % (auto) 0 % 07/18/23 12:16 Nucleated RBCs # 0.0 /100WBC 07/18/23 12:16 Sodium 140 mmol/L (136-145) 07/18/23 12:16 Potassium 4.7 mmol/L (3.5-5.1) 07/18/23 12:16 Chloride 104 mmol/L (98-107) 07/18/23 12:16 Carbon Dioxide 28 mmol/L (22-29) 07/18/23 12:16 Anion Gap 12.7 (5-19) 07/18/23 12:16 BUN 16 mg/dL (6-20) 07/18/23 12:16 Creatinine 0.9 mg/dL (0.7-1.2) 07/18/23 12:16 Glucose 97 mg/dL (65-115) 07/18/23 12:16 Calculated Osmolality 291 mOsm/kg (285-295) 07/18/23 12:16 Calcium 9.5 mg/dL (8.5-10.5) 07/18/23 12:16 Total Bilirubin 0.2 mg/dL (0.15-1.2) 07/18/23 12:16 AST 12 U/L (0-40) 07/18/23 12:16 ALT 14 U/L (0-41) 07/18/23 12:16 Alkaline Phosphatase 129 U/L (40-130) 07/18/23 12:16 Total Protein 6.6 g/dL (6.6-8.7) 07/18/23 12:16 Albumin 4.0 g/dL (3.5-5.2) 07/18/23 12:16 Globulin 2.6 g/dL (1.3-4.6) 07/18/23 12:16 Discharge Plan Discharge Patient Disposition: Home Clinical Impression: No suicidal thoughts Condition: Stable Prescriptions: No Action latanoprost 0.005 % Drops 1 drp ophthalmic (eye) BEDTIME Rx Instructions: 1 drop into both eyes daily at bedtime albuterol sulfate 90 mcg/actuation Hfa Aerosol Inhaler 2 puff INHALATION QID PRN (Reason: Shortness Of Breath) fluticasone propion-salmeterol [Wixela Inhub] 250-50 mcg/dose Blister With Device 1 inh INHALATION BID timolol maleate 0.5 % Drops 1 drp OPHTHALMIC (EYE) Q12H Rx Instructions: 1 DROP INTO BOTH EYES TWICE DAILY tizanidine 4 mg Capsule 8 mg PO Q8H PRN (Reason: Muscle Pain) citalopram 40 mg Tablet 40 mg PO DAILY 30 Days Qty: 30 1RF quetiapine 100 mg Tablet 150 mg PO DAILY@17 30 Days Qty: 45 1RF lamotrigine 25 mg Tablet 50 mg PO BID 30 Days Qty: 120 1RF divalproex 500 mg Tablet Extended Release 24 Hr 500 mg PO QAM 30 Days Qty: 30 1RF buspirone 15 mg Tablet 15 mg PO QID 30 Days Qty: 120 1RF quetiapine 100 mg tablet 100 mg PO divalproex 500 mg tablet extended release 24 hr 1,000 mg PO BEDTIME gabapentin 300 mg capsule 300 mg PO TID Discharge Orders: Discharge ED (Routine); Ordered 07/18/23 Ordered By: Arlin Braun Coding Level of Care Code ED Senior Site Manager for Marcio Carrasco
[2023-07-18 12:24] VITALS: BP 160/110; PULSE 80; TEMP 36.7; O2SAT 99; BMI 26.4
[2023-07-18 12:24] LABS: Basophils % 0.5 %; Eosinophils # 0.2 10^3/uL (0.0-0.8); Eosinophils % 2.1 %; Hematocrit 42.4 % (37-53); Lymphocytes # 1.9 10^3/uL (0.8-4.8); Lymphocytes % 25.5 %; Mean Corpuscular HGB Conc 32.8 g/dL (30-55); Mean Corpuscular Hemoglobin 31.4 pg (27-33); Mean Corpuscular Volume 95.7 fl (82-101); Mean Platelet Volume 9.3 fL (7.4-10.4); Monocytes # 0.6 10^3/uL (0.2-0.9); Monocytes % 8.2 %; Neutrophils # 4.77 10^3/uL (1.8-7.7); Neutrophils % 63.3 %; Nucleated Red Blood Cells % 0 %; Platelet Count 278 10^3/cmm (157-399); Red Blood Count 4.43 10^6/uL (3.85-5.65); Red Cell Distribution Width 12.7 % (12.1-15.1); White Blood Count 7.54 10^3/uL (3.29-11.43)
[2023-07-18 12:41] LABS: Alanine Aminotransferase 14 U/L (0-41); Alkaline Phosphatase 129 U/L (40-130); Anion Gap 12.7 (5-19); Aspartate Amino Transferase 12 U/L (0-40); Blood Urea Nitrogen 16 mg/dL (6-20); Calcium 9.5 mg/dL (8.5-10.5); Carbon Dioxide 28 mmol/L (22-29); Chloride 104 mmol/L (98-107); Globulin 2.6 g/dL (1.3-4.6); Glomerular Filtration Rate 86.4 mL/min (90-130); Glucose 97 mg/dL (65-115); Osmolality Calculated 291 mOsm/kg (285-295); Potassium 4.7 mmol/L (3.5-5.1); Sodium 140 mmol/L (136-145); Total Bilirubin 0.2 mg/dL (0.15-1.2); Total Protein 6.6 g/dL (6.6-8.7)
[2023-07-18 12:43] LABS: Acetaminophen < 5.0 ug/mL (10-30); Alcohol Level < 10 mg/dL (0-10); Salicylate < 0.3 mg/dL (3-10)
== END 2023-07-18 13:11 | disposition home or self-care (01) ==
PROVIDERS: Emergency Provider Physician Assistant
DX: Z03.89 Encounter for observation for other suspected diseases and conditions ruled out (principal); J44.9 Chronic obstructive pulmonary disease, unspecified; E78.5 Hyperlipidemia, unspecified; I10 Essential (primary) hypertension
CPT/HCPCS: 36415; 80053; 80307; 85025; 99283